=== PATIENT | male | born 1965 | race Caucasian/White ===

== ENCOUNTER 2018-01-08 06:18 | Emergency (ER) | payer MEDICARE, MEDICAID ==
[~2018-01-08] VITALS: Ht 167.6 cm; Wt 147.0 kg
[~2018-01-08 06:18] MED LIST: ACYC-202 PO; ALBU18HF2 IH; ALBU18HF2 INH; ALPR0.5T8 PO; ATOR10TA PO; DEC1T PO; DOCU250C96 PO; DULO60CA64 PO; FLUT100B3 IH; GABA-530 PO; LEVO100T9 PO; LIDO20SO MM; LISI2.5T2 PO; LURA60TA2 PO; METO25TA6 PO; NICO-687 TD; NITR0.4T SL; NITR1OIN TP; PANT40TA4 PO; POTA20TA10 PO; TRAZ-143 PO; [UNRECOGNIZED DRUG - CODE] NS; omega 3 PO
[2018-01-08] MEDS ORDERED: DIPH25CA83 PO (07:49)
[2018-01-08] MEDS ORDERED: PRED20TA PO (07:49)
[2018-01-08] MEDS ORDERED: diphenhydrAMINE 25mg capsule PO ONE (07:50)
[2018-01-08] MEDS ORDERED: predniSONE 20 mg tablet PO ONE (07:50)
[2018-01-08 07:59] VITALS: BP 124/91
== END 2018-01-08 08:07 | disposition home or self-care (01) ==
LOC: ER 06:19
DX: R21 Rash and other nonspecific skin eruption (principal); I25.10 Atherosclerotic heart disease of native coronary artery without angina pectoris; I13.0 Hypertensive heart and chronic kidney disease with heart failure and stage 1 through stage 4 chronic kidney disease, or unspecified chronic kidney disease; I50.9 Heart failure, unspecified; E11.22 Type 2 diabetes mellitus with diabetic chronic kidney disease; E78.00 Pure hypercholesterolemia, unspecified; I25.2 Old myocardial infarction; N18.9 Chronic kidney disease, unspecified; Z59.0 Homelessness; Z95.0 Presence of cardiac pacemaker; Z88.8 Allergy status to other drugs, medicaments and biological substances; Z79.899 Other long term (current) drug therapy
CPT/HCPCS: 99283; J7512; Q0163

== ENCOUNTER 2018-01-21 14:21 | Emergency (ER) | payer MEDICARE, MEDICAID ==
[~2018-01-21] VITALS: Ht 180011.9 cm; Wt 141.8 kg
[~2018-01-21 14:21] MED LIST changes: +DIPH25CA83 PO; +PRED20TA PO
[2018-01-21 15:04] LABS: BASOPHILS % (AUTO) 0.3 % (0-1); EOSINOPHILS # (AUTO) 1.2 X10'3 (0-0.9); EOSINOPHILS % (AUTO) 12.5 % (0-6); HEMATOCRIT 41.9 % (42.0-52.0); HEMOGLOBIN 14.1 g/dl (14.0-17.9); LYMPHOCYTES % (AUTO) 31.1 % (21-51); MEAN CORPUSCULAR HEMOGLOBIN 31.2 PG (27.0-31.0); MEAN CORPUSCULAR HGB CONC 33.7 % (33.0-36.5); MEAN CORPUSCULAR VOLUME 92.6 FL (78-98); MEAN PLATELET VOLUME 8.4 FL (7.4-10.4); MONOCYTES # (AUTO) 0.5 X10'3 (0-0.9); MONOCYTES % (AUTO) 5.5 % (2-12); NEUTROPHILS # (AUTO) 4.9 X10'3 (1.8-7.7); NEUTROPHILS % (AUTO) 50.6 % (42-75); PLATELET COUNT 220 X10'3 (140-440); RED BLOOD COUNT 4.52 X10'6 (4.70-6.10); RED CELL DISTRIBUTION WIDTH 14.8 % (11.5-14.5); WHITE BLOOD COUNT 9.6 X10'3 (4.5-11.0)
[2018-01-21 15:21] LABS: ALANINE AMINOTRANSFERASE 31 U/L (12-78); ALBUMIN 3.1 G/DL (3.4-5.0); ALBUMIN/GLOBULIN RATIO 0.8 (1.1-1.5); ALKALINE PHOSPHATASE 64 IU/L (46-116); ANION GAP 10 (8-16); ASPARTATE AMINO TRANSFERASE 41 U/L (10-37); BILIRUBIN,TOTAL 0.6 MG/DL (0.1-1.0); BLOOD UREA NITROGEN 2 MG/DL (7-18); BUN/CREATININE RATIO 2.7 (5.4-32.0); CALCIUM 8.8 MG/DL (8.5-10.1); CHLORIDE 107 MMOL/L (99-107); CREATININE 0.73 MG/DL (0.60-1.10); ETHANOL < 0.010 GM/DL (0.0-0.010); GLUCOSE 118 MG/DL (70-104); POTASSIUM 3.3 MMOL/L (3.5-5.1); SODIUM 141 MMOL/L (135-145); TOTAL CARBON DIOXIDE 24.5 MMOL/L (24-32); TOTAL PROTEIN 6.9 G/DL (6.4-8.2); eGFR > 90 ML/MIN
[2018-01-21 15:29] LABS: ACETAMINOPHEN < 2.0 UG/ML (10-30)
[2018-01-21] MEDS ORDERED: potassium chloride 10mEq CAPSULE.SA PO SCH (16:00)
[2018-01-21] MEDS ORDERED: potassium Cl 20 mEq SR tablet PO ONE (20:00)
[2018-01-21] MEDS ORDERED: LORazepam 2 mg/ml vial IM ONE (20:45)
[2018-01-21 21:03] LABS: CLARITY,URINE CLEAR (Clear); COLOR,URINE YELLOW (Yellow); GLUCOSE, URINE NEGATIVE (Neg); KETONES,URINE NEGATIVE (Neg); LEUKOCYTE ESTERASE ,URINE NEGATIVE (Neg); NITRITES, URINE NEGATIVE (Neg); OCCULT BLOOD,URINE TRACE-INTACT (Neg); PH,URINE 5.5 (4.8-8.0); PROTEIN,URINE NEGATIVE (Neg); UROBILINOGEN,URINE 0.2 E.U/dL (0.2-1.0)
[2018-01-21 21:07] LABS: UA COLLECTION TYPE VOIDED
[2018-01-21 21:10] LABS: BACTERIA,URINE NONE SEEN /HPF (Neg); MUCUS STRANDS NONE SEEN /LPF (Neg); SQUAMOUS EPITHELIAL CELL,UR FEW /LPF (FEW); WBC,URINE 0-4 /HPF (0-4)
[2018-01-21 21:13] LABS: URINE AMPHETAMINE SCREEN NEGATIVE (Neg); URINE BARBITUATE SCREEN NEGATIVE (Neg); URINE BENZODIAZEPINES SCREEN POSITIVE (Neg); URINE CANNABINOID SCREEN POSITIVE (Neg); URINE COCAINE SCREEN NEGATIVE (Neg); URINE METHADONE SCREEN NEGATIVE (Neg); URINE OPIATE SCREEN POSITIVE (Neg); URINE PHENCYCLIDINE SCREEN NEGATIVE (Neg)
[2018-01-21 21:35] LABS: ALANINE AMINOTRANSFERASE 27 U/L (12-78); ASPARTATE AMINO TRANSFERASE 39 U/L (10-37)
[2018-01-22] MEDS ORDERED: LISI2.5T2 PO (18:09)
[2018-01-22] MEDS ORDERED: ALPR-624 PO (18:09)
[2018-01-22] MEDS ORDERED: ZOLP10TA5 PO (18:09)
[2018-01-22] MEDS ORDERED: LEVO100T9 PO (18:38)
[2018-01-22] MEDS ORDERED: [UNRECOGNIZED DRUG - CODE] NS (18:38)
[2018-01-22] MEDS ORDERED: ATOR10TA87 PO (18:38)
[2018-01-22] MEDS ORDERED: PANT-47 PO (18:38)
[2018-01-22] MEDS ORDERED: METO25TA6 PO (18:38)
[2018-01-22] MEDS ORDERED: zolpidem 5mg tablet PO PRN (19:50)
[2018-01-22] MEDS: desmopressin 0.1mg/ml nasal spray 5ml btl NS SCH (20:50)
[2018-01-22] MEDS: metoprolol tartrate 12.5mg (1/2 tablet) PO SCH (20:51)
[2018-01-22] MEDS: lurasidone 60mg tablet PO SCH (20:51)
[2018-01-22] MEDS: atorvastatin 10mg tablet PO SCH (20:52)
[2018-01-23] MEDS: metoprolol tartrate 12.5mg (1/2 tablet) PO SCH ×2 (07:31→20:17)
[2018-01-23] MEDS: pantoprazole 40mg Tablet.DR PO SCH (07:31)
[2018-01-23] MEDS: lisinopril 2.5mg tablet PO SCH (07:31)
[2018-01-23] MEDS: levoTHYROXINE 100mcg tablet PO SCH (07:31)
[2018-01-23] MEDS: atorvastatin 10mg tablet PO SCH (20:17)
[2018-01-23] MEDS: desmopressin 0.1mg/ml nasal spray 5ml btl NS SCH (20:17)
[2018-01-23] MEDS: lurasidone 60mg tablet PO SCH (20:17)
[2018-01-23] MEDS: ALPRAZolam 0.5mg tablet PO PRN (20:17)
[2018-01-24] MEDS ORDERED: acetaminophen 325mg tablet PO ONE (02:55)
[2018-01-24] MEDS: lisinopril 2.5mg tablet PO SCH (08:16)
[2018-01-24] MEDS: metoprolol tartrate 12.5mg (1/2 tablet) PO SCH ×2 (08:16→21:25)
[2018-01-24] MEDS: levoTHYROXINE 100mcg tablet PO SCH (08:16)
[2018-01-24] MEDS: pantoprazole 40mg Tablet.DR PO SCH (08:16)
[2018-01-24] MEDS: ALPRAZolam 0.5mg tablet PO PRN ×2 (08:43→21:24)
[2018-01-24] MEDS ORDERED: predniSONE 20 mg tablet PO ONE (09:35)
[2018-01-24] MEDS: lurasidone 60mg tablet PO SCH (21:00)
[2018-01-24] MEDS: desmopressin 0.1mg/ml nasal spray 5ml btl NS SCH (21:24)
[2018-01-24] MEDS: atorvastatin 10mg tablet PO SCH (21:25)
[2018-01-25] MEDS ORDERED: haloperidol lactate 5mg/ml inj IM ONE ×2 (01:30→01:47)
[2018-01-25] MEDS ORDERED: LORazepam 2 mg/ml vial IM ONE (01:30)
[2018-01-25] MEDS ORDERED: diphenhydrAMINE 50 mg/ml inj IM ONE (01:30)
[2018-01-25] MEDS: pantoprazole 40mg Tablet.DR PO SCH (09:34)
[2018-01-25] MEDS: levoTHYROXINE 100mcg tablet PO SCH (09:35)
[2018-01-25] MEDS: predniSONE 20 mg tablet PO SCH (09:35)
[2018-01-25] MEDS: lisinopril 2.5mg tablet PO SCH ×2 (09:37→15:24)
[2018-01-25] MEDS: metoprolol tartrate 12.5mg (1/2 tablet) PO SCH ×3 (09:38→21:45)
[2018-01-25] MEDS: desmopressin 0.1mg/ml nasal spray 5ml btl NS SCH (21:47)
[2018-01-25] MEDS: atorvastatin 10mg tablet PO SCH (21:48)
[2018-01-25] MEDS: lurasidone 60mg tablet PO SCH (21:48)
[2018-01-26] MEDS: pantoprazole 40mg Tablet.DR PO SCH (07:20)
[2018-01-26] MEDS: lisinopril 2.5mg tablet PO SCH (07:20)
[2018-01-26] MEDS: ALPRAZolam 0.5mg tablet PO PRN ×2 (07:20→17:42)
[2018-01-26] MEDS: metoprolol tartrate 12.5mg (1/2 tablet) PO SCH (07:20)
[2018-01-26] MEDS: levoTHYROXINE 100mcg tablet PO SCH (07:20)
[2018-01-26] MEDS: predniSONE 20 mg tablet PO SCH (07:56)
[2018-01-26 16:53] LABS: BASOPHILS % (AUTO) 0.1 % (0-1); EOSINOPHILS # (AUTO) 0.5 X10'3 (0-0.9); EOSINOPHILS % (AUTO) 4.2 % (0-6); HEMATOCRIT 43.2 % (42.0-52.0); HEMOGLOBIN 14.6 g/dl (14.0-17.9); LYMPHOCYTES # (AUTO) 1.6 X10'3 (1.1-4.8); LYMPHOCYTES % (AUTO) 12.7 % (21-51); MEAN CORPUSCULAR HGB CONC 33.9 % (33.0-36.5); MEAN CORPUSCULAR VOLUME 91.6 FL (78-98); MEAN PLATELET VOLUME 8.4 FL (7.4-10.4); MONOCYTES # (AUTO) 0.4 X10'3 (0-0.9); MONOCYTES % (AUTO) 3.4 % (2-12); NEUTROPHILS # (AUTO) 10.3 X10'3 (1.8-7.7); NEUTROPHILS % (AUTO) 79.6 % (42-75); PLATELET COUNT 202 X10'3 (140-440); RED BLOOD COUNT 4.72 X10'6 (4.70-6.10); RED CELL DISTRIBUTION WIDTH 15.6 % (11.5-14.5); WHITE BLOOD COUNT 12.9 X10'3 (4.5-11.0)
[2018-01-26 17:02] LABS: ALBUMIN 3.6 G/DL (3.4-5.0); ANION GAP 9 (8-16); BLOOD UREA NITROGEN 11 MG/DL (7-18); BUN/CREATININE RATIO 12.6 (5.4-32.0); CALCIUM 9.2 MG/DL (8.5-10.1); CHLORIDE 113 MMOL/L (99-107); CREATININE 0.87 MG/DL (0.60-1.10); GLUCOSE 140 MG/DL (70-104); POTASSIUM 3.6 MMOL/L (3.5-5.1); SODIUM 148 MMOL/L (135-145); eGFR > 90 ML/MIN
[2018-01-26] MEDS ORDERED: cephalexin 250mg capsule PO ONE (17:45)
[2018-01-26 18:26] VITALS: BP 102/51
[2018-01-26] MEDS ORDERED: nystatin 15 GM powder TP SCH (21:00)
== END 2018-01-26 18:30 ==
LOC: ER 14:21
DX: T42.4X2A Poisoning by benzodiazepines, intentional self-harm, initial encounter (principal); R45.851 Suicidal ideations; I25.10 Atherosclerotic heart disease of native coronary artery without angina pectoris; I13.0 Hypertensive heart and chronic kidney disease with heart failure and stage 1 through stage 4 chronic kidney disease, or unspecified chronic kidney disease; E78.00 Pure hypercholesterolemia, unspecified; E11.22 Type 2 diabetes mellitus with diabetic chronic kidney disease; I25.2 Old myocardial infarction; I50.9 Heart failure, unspecified; J44.9 Chronic obstructive pulmonary disease, unspecified; N18.9 Chronic kidney disease, unspecified; F17.200 Nicotine dependence, unspecified, uncomplicated; Z59.0 Homelessness; Z95.0 Presence of cardiac pacemaker; F32.9 Major depressive disorder, single episode, unspecified; Z88.8 Allergy status to other drugs, medicaments and biological substances; Z79.899 Other long term (current) drug therapy; Y92.89 Other specified places as the place of occurrence of the external cause
CPT/HCPCS: 36415; 70450; 71045; 80048; 80053; 80305; 80320; 80329; 81001; 82948; 83735; 84450; 84460; 85025; 93005; 96372; 99285; J1200; J1630; J2060; J7512